=== PATIENT | female | born 1990 | race Caucasian/White ===

== ENCOUNTER 2018-11-07 17:12 | Emergency (ER) | payer SELFPAY ==
[2018-11-07 17:54] LABS: ABSOLUTE LYMPHOCYTES (AUTO) 2.1 10^3/uL (0.5-4.7); ABSOLUTE MONOCYTES (AUTO) 0.4 10^3/uL (0.1-1.4); ABSOLUTE NEUT (AUTO) 1.8 10^3/uL (1.7-8.2); EOSINOPHILS % (AUTO) 0.5 % (0-6); HEMATOCRIT 39.8 % (36.0-47.0); HEMOGLOBIN 13.8 g/dL (12.0-15.5); LYMPHOCYTES % (AUTO) 48.1 % (13-45); MEAN CORPUSCULAR HEMOGLOBIN 30.7 pg (27.0-33.4); MEAN CORPUSCULAR HGB CONC 34.7 g/dL (32.0-36.0); MEAN CORPUSCULAR VOLUME 89 fl (80-97); MONOCYTES % (AUTO) 8.4 % (3-13); PLATELET COUNT 384 10^3/uL (150-450); RED CELL DISTRIBUTION WIDTH 12.8 % (11.5-14.0); TOTAL CELLS COUNTED % (AUTO) 100 %; WHITE BLOOD COUNT 4.4 10^3/uL (4.0-10.5)
--- NOTE | 2018-11-07 17:58 | ER Document Report ---
ED General - General Chief Complaint: Overdose Stated Complaint: PSYCH EVAL Time Seen by Provider: 11/07/18 17:45 Mode of Arrival: Medic Information source: Patient, Emergency Med Personnel Notes: This is a 28-year-old female with a remote history of bipolar affective disorder as a teenager (currently on no medicines) who was brought in by EMS in the setting of an intentional overdose. Patient states she is got a lot of financial and family stressors. Patient states she took the overdose at 1:30 PM TRAVEL OUTSIDE OF THE [place] IN LAST 30 DAYS: No - HPI Onset: Last week Onset/Duration: Gradual Quality of pain: No pain Severity: None Pain Level: Denies Associated symptoms: denies: Fever, Shortness of breath Exacerbated by: Denies Relieved by: Denies Similar symptoms previously: Yes Recently seen / treated by doctor: No - Related Data Allergies/Adverse Reactions: Penicillins Allergy (Verified 11/07/18 18:09) Past Medical History - General Information source: Patient - Social History Smoking Status: Never Smoker Cigarette use (# per day): No Chew tobacco use (# tins/day): No Frequency of alcohol use: None Drug Abuse: None Lives with: Family Family History: None Patient has suicidal ideation: Yes Patient has homicidal ideation: No - Past Medical History Cardiac Medical History: Reports: None Pulmonary Medical History: Reports: None Neurological Medical History: Reports: None Endocrine Medical History: Reports: None Renal/ Medical History: Reports: None Malignancy Medical History: Reports: None GI Medical History: Reports: None Musculoskeletal Medical History: Reports None Skin Medical History: Reports None Psychiatric Medical History: Reports: Hx Bipolar Disorder Surgical Hx: Negative Review of Systems - Review of Systems Constitutional: denies: Chills, Fever EENT: No symptoms reported Cardiovascular: No symptoms reported Respiratory: No symptoms reported Gastrointestinal: Nausea. denies: Abdominal pain, Vomiting Genitourinary: No symptoms reported Female Genitourinary: No symptoms reported Musculoskeletal: No symptoms reported Skin: No symptoms reported Hematologic/Lymphatic: No symptoms reported Neurological/Psychological: No symptoms reported Physical Exam - Vital signs Vitals: Temp Pulse Resp BP Pulse Ox 97.8 F 105 H 14 108/71 97 11/07/18 17:25 11/07/18 17:25 11/07/18 17:25 11/07/18 17:25 11/07/18 17:25 Notes: Physical exam: GENERAL: Depressed 28-year-old female, she is a oriented x3 and answers questions appropriately. HEAD: Atraumatic, normocephalic. EYES: Pupils equal round and reactive to light, extraocular movements intact, sclera anicteric, conjunctiva are normal. ENT: TMs normal, nares patent, oropharynx clear without exudates. Moist mucous membranes. NECK: Normal range of motion, supple without obvious mass or JVD. LUNGS: Breath sounds clear to auscultation bilaterally and equal. No wheezes rales or rhonchi. HEART: Regular rate and rhythm without murmurs, rubs or gallops. ABDOMEN: Soft, normoactive bowel sounds. No tenderness to palpation. No guarding, no rebound. No masses appreciated. EXTREMITIES: Normal range of motion, no pitting or edema. No clubbing or cyanosis. NEUROLOGICAL: Cranial nerves II through XII grossly intact. Normal speech, m oving all extremities. PSYCH: Depressed SKIN: Warm, Dry, normal turgor, no rashes or lesions noted. Course - Re-evaluation Re-evalutation: 11/07/18 18:04 I did discuss the case with poison control. They recommended no charcoal at that time given the time of ingestion was several hours ago. The plan will be to observe for any toxidrome, labs and continue follow-up. 11/07/18 21:11 Patient has been hemodynamically stable and alert and in no distress. Her labs look good. At this point, we will medically clear her and she will be held for psychiatric evaluation in the morning. - Vital Signs Vital signs: Temp Pulse Resp BP Pulse Ox 97.8 F 105 H 12 132/71 H 99 11/07/18 17:25 11/07/18 17:25 11/07/18 18:31 11/07/18 18:31 11/07/18 18:31 - Laboratory Result Diagrams: 11/07/18 17:20 11/07/18 18:14 Laboratory results interpreted by me: 11/07/18 11/07/18 17:20 18:14 Lymphocytes % 48.1 H Salicylates < 1.0 L Acetaminophen < 10 L - EKG Interpretation by Me Rhythm: NSR - EKG shows sinus rhythm with a ventricular rate of 100, QTc 444, no acute ST-T wave changes. Discharge - Discharge Clinical Impression: Mood disorder, Intentional overdose Condition: Stable Disposition: PSYCH HOSP/UNIT
[2018-11-07 18:05] LABS: APPEARANCE,URINE CLEAR; BILIRUBIN,URINE NEGATIVE (NEGATIVE); COLOR,URINE COLORLESS; GLUCOSE, URINE NEGATIVE (NEGATIVE); KETONES,URINE NEGATIVE (NEGATIVE); LEUKOCYTE ESTERASE,URINE NEGATIVE (NEGATIVE); NITRITE,URINE NEGATIVE (NEGATIVE); PROTEIN,URINE NEGATIVE (NEGATIVE); URINE SPECIFIC GRAVITY 1.003; UROBILINOGEN,URINE NEGATIVE mg/dL (<2.0)
[2018-11-07] MEDS ORDERED: NORMAL SALINE 1000 ML 1,000 ML IV ONE (18:05)
[2018-11-07 18:18] LABS: URINE AMPHETAMINES SCREEN NEGATIVE; URINE BARBITURATES SCREEN NEGATIVE; URINE BENZODIAZEPINES SCREEN NEGATIVE; URINE COCAINE SCREEN NEGATIVE; URINE MARIJUANA (THC) SCREEN NEGATIVE; URINE METHADONE SCREEN NEGATIVE; URINE PHENCYCLIDINE SCREEN NEGATIVE
[2018-11-07 18:56] LABS: ALANINE AMINOTRANSFERASE 30 U/L (9-52); ALBUMIN 3.9 g/dL (3.5-5.0); ALKALINE PHOSPHATASE 75 U/L (38-126); ANION GAP 12 (5-19); ASPARTATE AMINO TRANSFERASE 28 U/L (14-36); BILIRUBIN,DIRECT 0.3 mg/dL (0.0-0.4); BILIRUBIN,TOTAL 0.6 mg/dL (0.2-1.3); BLOOD UREA NITROGEN 12 mg/dL (7-20); CALCIUM 9.9 mg/dL (8.4-10.2); CARBON DIOXIDE 28 mmol/L (22-30); CHLORIDE 103 mmol/L (98-107); GLUCOSE 105 mg/dL (75-110); POTASSIUM 3.6 mmol/L (3.6-5.0); SODIUM 143.1 mmol/L (137-145); TOTAL PROTEIN 8.2 g/dL (6.3-8.2)
[2018-11-07 18:57] LABS: ACETAMINOPHEN < 10 ug/mL (10-30); ALCOHOL < 10 mg/dL (NONE DETECTED); SALICYLATE < 1.0 mg/dL (2.0-20.0)
[2018-11-07] MEDS ORDERED: ONDANSETRON 4 MG TAB.RAPDIS PO ONE (21:38)
--- NOTE | 2018-11-08 09:47 | EKG REPORT ---
SEVERITY:- BORDERLINE ECG - SINUS TACHYCARDIA BORDERLINE T WAVE ABNORMALITIES : Confirmed by: Jackie Chowdhury 08-Nov-2018 09:46:36
--- NOTE | 2018-11-08 10:25 | ER Document Report ---
Doctor's Note Notes: 11/08/18 10:24 Rounds: Chart reviewed and patient interviewed. Patient being evaluated for bipolar disorder and depression who says she took an overdose of ibuprofen. Denies taking any other medications or drugs in the overdose. Says she was feeling suicidal, but does not feel that way at this time. Vital signs are all normal. Labs are all essentially normal, including negative acetaminophen. Patient appears to be medically stable for transfer or discharge. Jimena Weinstein MD
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
[2018-11-08 15:15] VITALS: BP 110/64
== END 2018-11-08 14:00 | disposition home or self-care (01) ==
LOC: ER 17:12
DX: T50.902A Poisoning by unspecified drugs, medicaments and biological substances, intentional self-harm, initial encounter (principal); F39 Unspecified mood [affective] disorder; F31.9 Bipolar disorder, unspecified
CPT/HCPCS: 93005; 99285; 96360; 36415; 80307 ×4; 84702; 85025; 80053; 81001; 93010; S0119; J7030